=== PATIENT | female | born 1990 | race Caucasian/White ===

== ENCOUNTER 2018-09-26 19:20 | Emergency (ER) | payer SELFPAY ==
[~2018-09-26] VITALS: Ht 165.1 cm; Wt 95.5 kg
[2018-09-26] MEDS ORDERED: IBUPROFEN 800MG TABLET PO ONE (22:00)
[2018-09-27 00:30] VITALS: BP 110/80
== END 2018-09-27 01:04 | disposition home or self-care (01) ==
LOC: ER 19:20
DX: S62.316A Displaced fracture of base of fifth metacarpal bone, right hand, initial encounter for closed fracture (principal); K80.20 Calculus of gallbladder without cholecystitis without obstruction; F17.200 Nicotine dependence, unspecified, uncomplicated; W01.0XXA Fall on same level from slipping, tripping and stumbling without subsequent striking against object, initial encounter; Y93.89 Activity, other specified; Y92.89 Other specified places as the place of occurrence of the external cause; Y99.8 Other external cause status
CPT/HCPCS: 29125; 73130; 81025; 99283